=== PATIENT | female | born 1960 | race Caucasian/White ===

== ENCOUNTER 2020-06-16 00:34 | Emergency (ER) | payer OTHER ==
[~2020-06-16] VITALS: Ht 170.2 cm; Wt 76.7 kg
[~2020-06-16 00:34] MED LIST: ACET-8386 PO; CARI350T PO; NAPR-54 PO
[2020-06-16 00:39] VITALS: BP 121/59
--- NOTE | 2020-06-16 00:39 | NUR ---
to bed ambulatory
--- NOTE | 2020-06-16 00:45 | NUR ---
RECEIVED IN BED FROM TRIAGE, AMBULATORY, WITH C/O RIGHT WRIST PAIN S/P TRIP AND FALL APPROX 8 HOURS AGO,. DECREASED AND GUARDED ROM NOTED WITH SWELLING PMH: CHF, HTN NKDA
--- NOTE | 2020-06-16 00:50 | NUR ---
DR. ARCHER AT BEDSIDE FOR EXAM
[2020-06-16] MEDS ORDERED: HYDROcodone/APAP 5/325 MG 1 TAB TAB PO ONE (00:55)
--- NOTE | 2020-06-16 03:15 | NUR ---
PTS RIGHT ARM WAS PLACED IN A SUGAR TONG SPLINT. PTS ARM WAS ALSO PLACED IN A SHOULDER IMOBOLIZER. [facility].
[2020-06-16 03:20] VITALS: BP 118/64
== END 2020-06-16 03:20 | disposition home or self-care (01) ==
LOC: MED 00:34
DX: S52.531A Colles' fracture of right radius, initial encounter for closed fracture (principal); W18.39XA Other fall on same level, initial encounter; Y93.89 Activity, other specified; Y92.89 Other specified places as the place of occurrence of the external cause; Y99.8 Other external cause status
CPT/HCPCS: 73090; 73110; 99284

== ENCOUNTER 2020-07-04 23:55 | Emergency (ER) | payer OTHER ==
[~2020-07-04] VITALS: Ht 170.2 cm; Wt 76.7 kg
--- NOTE | 2020-07-05 00:03 | NUR ---
PT [facility] BLS. TAKEN TO BED 8
[2020-07-05 00:16] VITALS: BP 156/68
--- NOTE | 2020-07-05 00:23 | NUR ---
[facility] FROM HOME. PT WAS FOUND VOMITING AND C/O ABD PAIN WHEN EMS ARRIVED. HX OF CHF AND CHOLELITHIASIS. PT S/P MECHANICAL FALL X2 WEEKS, PT REPORTS HAVING FRACTURE ON HER RIGHT WRIST. SPLINT IN PLACE . NKA TO MEDS.
[2020-07-05] MEDS ORDERED: ONDANSETRON 4 MG/2 ML VIAL IVP ONE (00:35)
[2020-07-05] MEDS ORDERED: KETOROLAC 30 MG/ML VIAL IVP ONE (00:35)
[2020-07-05] MEDS ORDERED: NACL 0.9% 500 ML IV ONE (00:35)
[2020-07-05 00:55] LABS: BASOPHILS % (AUTO) 0.5 % (0.0-2.0); EOSINOPHILS % (AUTO) 0.7 % (0.0-4.0); HEMATOCRIT 41.3 % (36-48); LYMPHOCYTES # (AUTO) 0.5 K/uL (2.5-16.5); LYMPHOCYTES % (AUTO) 8.5 % (20.5-51.1); MEAN CORPUSCULAR HEMOGLOBIN 30 pg (27-31); MEAN CORPUSCULAR HGB CONC 34 g/dL (33-37); MEAN CORPUSCULAR VOLUME 87.9 fL (80-94); MONOCYTES # (AUTO) 0.5 K/uL (0.8-1.0); MONOCYTES % (AUTO) 8.1 % (1.7-9.3); NEUTROPHILS # (AUTO) 5.2 K/uL (1.8-7.7); NEUTROPHILS % (AUTO) 82.2 % (42.2-75.2); PLATELET COUNT (AUTO) 134 K/uL (140-450); RED CELL DISTRIBUTION WIDTH 12.6 % (11.6-13.7); WHITE BLOOD COUNT (AUTO) 6.4 K/uL (4.8-10.8)
--- NOTE | 2020-07-05 00:55 | NUR ---
X-Ray at bedside.
[2020-07-05 01:15] LABS: POTASSIUM 3.4 mmol/L (3.5-5.1)
[2020-07-05 01:16] LABS: ANION GAP 10.5 (8-16); CARBON DIOXIDE 29.9 mmol/L (21-32)
[2020-07-05 01:17] LABS: ALBUMIN 3.4 g/dL (3.4-5.0)
[2020-07-05 03:29] VITALS: BP 156/68
--- NOTE | 2020-07-05 03:30 | NUR ---
Patient discharged with v/s stable. Written and verbal after care instructions given and explained. Patient verbalized understanding. Ambulatory with steady gait. All questions addressed prior to discharge. Advised to follow up with PMD.
--- NOTE | 2020-07-06 19:28 | NUR ---
LATE ENTRY--- 0.9% NS BOLUS ENDED AT 0205
== END 2020-07-05 03:30 | disposition home or self-care (01) ==
LOC: MED 23:55
DX: R10.9 Unspecified abdominal pain (principal); I11.0 Hypertensive heart disease with heart failure; Z79.899 Other long term (current) drug therapy
CPT/HCPCS: 36415; 71045; 76705; 80053; 83690; 84484; 85025; 93005; 96361; 96374; 96375; 99285; J1885; J2405; J7030

== ENCOUNTER 2022-05-13 | Emergency (ER) | payer OTHER ==
[~2022-05-13] VITALS: Ht 165.1 cm; Wt 81.9 kg
[~2022-05-13] MED LIST changes: -ACET-8386 PO; +ACET-8905 PO
[2022-05-13 00:06] VITALS: BP 146/110
--- NOTE | 2022-05-13 00:15 | NUR ---
PT TO LOBBY WITH DAUGHTER
--- NOTE | 2022-05-13 00:23 | NUR ---
Urine collected and sent to lab
--- NOTE | 2022-05-13 00:27 | NUR ---
Pt taken to CT
[2022-05-13 01:01] LABS: APPEARANCE,URINE CLEAR (CLEAR); BILIRUBIN,URINE NEGATIVE (NEGATIVE); BLOOD, URINE NEGATIVE (NEGATIVE); COLOR,URINE YELLOW (YELLOW); LEUKOCYTE ESTERASE ,URINE TRACE (NEGATIVE); NITRITE, URINE NEGATIVE (NEGATIVE); UGLUCOSE NEGATIVE (NEGATIVE)
[2022-05-13 01:06] LABS: RBC,URINE 0-5 /HPF (0-5)
[2022-05-13 01:11] LABS: ALBUMIN 2.8 g/dL (3.4-5.0); ANION GAP 10.4 (8-16); ASPARTATE AMINOTRANSFERASE 16 U/L (15-37); CARBON DIOXIDE 34.8 mmol/L (21-32); CHLORIDE 104 mmol/L (98-107); CREATININE 1.1 mg/dL (0.6-1.3); GFR ARICAN-AMERICAN 64 mL/min (>90); GLUCOSE 92 mg/dL (74-106); MAGNESIUM 2.1 mg/dL (1.8-2.4); POTASSIUM 4.2 mmol/L (3.5-5.1); SODIUM SERUM 145 mmol/L (136-145); TOTAL BILIRUBIN 0.2 mg/dL (0.0-1.0); UREA NITROGEN, BLOOD 13 mg/dL (7-18)
[2022-05-13 01:22] LABS: BASOPHILS % (AUTO) 0.9 % (0.0-2.0); EOSINOPHILS # (AUTO) 0.2 K/uL (0-0.4); EOSINOPHILS % (AUTO) 4.1 % (0.0-4.0); HEMATOCRIT 42.4 % (36-48); HEMOGLOBIN 14.1 g/dL (12.0-16.0); LYMPHOCYTES # (AUTO) 1.3 K/uL (2.5-16.5); LYMPHOCYTES % (AUTO) 26.2 % (20.5-51.1); MEAN CORPUSCULAR HEMOGLOBIN 31 pg (27-31); MEAN CORPUSCULAR HGB CONC 33 g/dL (33-37); MEAN CORPUSCULAR VOLUME 91.6 fL (80-94); MONOCYTES # (AUTO) 0.6 K/uL (0.8-1.0); MONOCYTES % (AUTO) 11.1 % (1.7-9.3); NEUTROPHILS # (AUTO) 2.9 K/uL (1.8-7.7); NEUTROPHILS % (AUTO) 57.7 % (42.2-75.2); PLATELET COUNT (AUTO) 181 K/uL (140-450); RED BLOOD CELL COUNT(AUTO) 4.63 MIL/uL (4.20-5.40); RED CELL DISTRIBUTION WIDTH 13.4 % (11.6-13.7); WHITE BLOOD COUNT (AUTO) 5.1 K/uL (4.8-10.8)
[2022-05-13] MEDS ORDERED: NITR100C7 PO (02:20)
[2022-05-13 02:25] VITALS: BP 132/78
[2022-05-13] MEDS ORDERED: ASPIRIN 81 MG TAB.CHEW PO ONE (02:35)
[2022-05-13] MEDS ORDERED: NACL 0.9% 1,000 ML IV ONE (02:35)
== END 2022-05-13 02:25 | disposition home or self-care (01) ==
LOC: MED
DX: R41.82 Altered mental status, unspecified (principal); Z20.822 Contact with and (suspected) exposure to COVID-19; N39.0 Urinary tract infection, site not specified; I11.0 Hypertensive heart disease with heart failure; I50.9 Heart failure, unspecified; F17.200 Nicotine dependence, unspecified, uncomplicated; Z79.899 Other long term (current) drug therapy
CPT/HCPCS: 36415; 70450; 80053; 81001; 82140; 83735; 84484; 85025; 87086; 99284

== ENCOUNTER 2022-05-13 02:40 | Emergency (ER) | payer OTHER ==
[~2022-05-13] VITALS: Ht 165.1 cm; Wt 85.7 kg
[~2022-05-13 02:40] MED LIST changes: +NITR100C7 PO
[2022-05-13 02:50] VITALS: BP 152/82
--- NOTE | 2022-05-13 02:55 | NUR ---
PT TAKEN TO BED 5
--- NOTE | 2022-05-13 03:26 | NUR ---
PT TAKEN TO CT
[2022-05-13] MEDS ORDERED: ASPIRIN 81 MG TAB.CHEW PO ONE (03:35)
[2022-05-13] MEDS ORDERED: NACL 0.9% 1,000 ML IV ONE (03:35)
[2022-05-13] MEDS ORDERED: cefTRIAXone 1,000 MG VIAL ONE (03:45)
--- NOTE | 2022-05-13 03:51 | NUR ---
pt was discharge ad came back [facility]to [facility] by daughter due to her alter and short term memomey problem, awake and alert x4. room air and ambulatory
--- NOTE | 2022-05-13 07:30 | NUR ---
REPORT RECEIVED FROM MARINA ROBLERO. ASSUMED CARE AT THIS TIME
--- NOTE | 2022-05-13 09:16 | NUR ---
[facility] WALKED TO LAB
--- NOTE | 2022-05-13 10:26 | NUR ---
ATTEMPT TO GIVE REPORT TO JOAQUÍN LOPEZ. "NURSE NOT AVAILABLE" "SHE WILL CALL BACK".
--- NOTE | 2022-05-13 10:43 | NUR ---
[facility] AT BEDSIDE FOR TX
--- NOTE | 2022-05-13 10:46 | NUR ---
REPORT GIVEN TO SANJUANA ROBLERO AT [facility]. ALL QUESTIONS ANSWERED. MADE AWARE OF ETA.
--- NOTE | 2022-05-13 10:48 | NUR ---
CALLED ATTEMPT TO NOTIFY -DAUGHTER DAVID ABOUT PT TX, NO ANSWER.
[2022-05-13 10:55] VITALS: BP 157/82
--- NOTE | 2022-05-13 10:55 | NUR ---
Patient to be transferred to [facility]. Is being transferred due to INSURANCE. Receiving facility has accepting physician and available space. ER physician has signed transfer form. Patient or responsible libertarian has agreed to transfer and signed form. Patient belongings inventoried and will be sent with patient. Copy of nursing notes, lab reports, Physicians Orders AND CT to be sent with patient. Report called to SANJUANA ROBLERO at receiving facility. [facility] VIA [facility] . ETA TO FACILITY <30MIN.
--- NOTE | 2022-05-13 11:09 | NUR ---
The patient's care was reviewed and supervised by Delton 04 ED, RN.
== END 2022-05-13 10:55 | disposition short-term general hospital (02) ==
LOC: MED 02:40
DX: R41.82 Altered mental status, unspecified (principal); N39.0 Urinary tract infection, site not specified; I10 Essential (primary) hypertension; Z79.899 Other long term (current) drug therapy
CPT/HCPCS: 70496; 70498; 96365; 99285; J0696; Q9967; J7030

== ENCOUNTER 2023-01-21 20:45 | Emergency (ER) | payer MEDICARE, OTHER ==
[~2023-01-21] VITALS: Ht 167.6 cm; Wt 79.4 kg
[2023-01-21 20:52] VITALS: BP 124/64; PULSE 104; RESP 12; TEMP 96.7; O2SAT 95
[2023-01-21] MEDS ORDERED: NACL 0.9% 1,000 ML IV ONE (21:10)
[2023-01-21 22:08] LABS: BASOPHILS % (AUTO) 0.2 % (0.0-2.0); EOSINOPHILS % (AUTO) 0.2 % (0.0-4.0); HEMATOCRIT 42.5 % (36-48); HEMOGLOBIN 14.5 g/dL (12.0-16.0); LYMPHOCYTES # (AUTO) 0.3 K/uL (2.5-16.5); LYMPHOCYTES % (AUTO) 2.9 % (20.5-51.1); MEAN CORPUSCULAR HEMOGLOBIN 31 pg (27-31); MEAN CORPUSCULAR HGB CONC 34 g/dL (33-37); MEAN CORPUSCULAR VOLUME 89.2 fL (80-94); MONOCYTES # (AUTO) 0.4 K/uL (0.8-1.0); MONOCYTES % (AUTO) 4.9 % (1.7-9.3); NEUTROPHILS # (AUTO) 8.1 K/uL (1.8-7.7); NEUTROPHILS % (AUTO) 91.8 % (42.2-75.2); RED BLOOD CELL COUNT(AUTO) 4.76 MIL/uL (4.20-5.40); RED CELL DISTRIBUTION WIDTH 12.9 % (11.6-13.7); WHITE BLOOD COUNT (AUTO) 8.8 K/uL (4.8-10.8)
[2023-01-21 22:32] LABS: ALBUMIN 3.2 g/dL (3.4-5.0); ANION GAP 12.6 (8-16); CALCIUM 8.5 mg/dL (8.5-10.1); CREATINE KINASE, TOTAL 130 U/L (26-192); CREATININE 1.2 mg/dL (0.6-1.3); POTASSIUM 3.6 mmol/L (3.5-5.1); TOTAL BILIRUBIN 0.6 mg/dL (0.0-1.0); TOTAL PROTEIN, SERUM 7.1 g/dL (6.4-8.2)
[2023-01-21 22:43] LABS: PLATELET COUNT (AUTO) 73 K/uL (140-450)
[2023-01-21 22:49] LABS: LACTIC ACID 2.4 mmol/L (0.4-2.0)
[2023-01-22 00:30] LABS: APPEARANCE,URINE CLEAR (CLEAR); BILIRUBIN,URINE NEGATIVE (NEGATIVE); BLOOD, URINE NEGATIVE (NEGATIVE); COLOR,URINE YELLOW (YELLOW); LEUKOCYTE ESTERASE ,URINE 2+ (NEGATIVE); NITRITE, URINE NEGATIVE (NEGATIVE); PROTEIN,URINE NEGATIVE (NEGATIVE); UGLUCOSE NEGATIVE (NEGATIVE)
[2023-01-22 00:37] LABS: BACTERIA,URINE 10-30 (MOD) /HPF (None Seen); RBC,URINE 0-5 /HPF (0-5); WBC,URINE 16-25 (MOD) /HPF (0-5)
[2023-01-22 00:38] LABS: MUCUS,URINE 1+ /LPF (None Seen); SQUAMOUS EPITHELIAL CELL,UR 4-10 (MOD) /LPF (0-3 (FEW))
[2023-01-22] MEDS ORDERED: cefTRIAXone 1,000 MG VIAL ONE (01:19)
[2023-01-22] MEDS ORDERED: ESCI5TAB PO (01:37)
[2023-01-22] MEDS ORDERED: VALS40TA3 PO (01:37)
[2023-01-22] MEDS ORDERED: THIA50TA39 PO (01:37)
[2023-01-22] MEDS ORDERED: ATOR10TA51 PO (01:37)
[2023-01-22] MEDS ORDERED: NALT50TA5 PO (01:37)
[2023-01-22] MEDS ORDERED: CYAN25006 PO (01:37)
[2023-01-22] MEDS ORDERED: CEPH-588 PO (04:20)
[2023-01-22 04:32] VITALS: BP 118/65; PULSE 85; RESP 12; TEMP 96.7; O2SAT 97
== END 2023-01-22 04:32 | disposition left against medical advice (07) ==
LOC: MED 20:45
DX: R55 Syncope and collapse (principal); Z20.822 Contact with and (suspected) exposure to COVID-19; N39.0 Urinary tract infection, site not specified; I95.9 Hypotension, unspecified; R74.02 Elevation of levels of lactic acid dehydrogenase [LDH]; R76.8 Other specified abnormal immunological findings in serum; Z79.899 Other long term (current) drug therapy
CPT/HCPCS: 36415; 71045; 80053; 81001; 82550; 83605; 83880; 84484; 85025; 85379; 87040; 87086; 87426; 96365; 99285; J0696

== ENCOUNTER 2023-01-25 12:15 | Emergency (ER) | payer MEDICARE, OTHER ==
[~2023-01-25] VITALS: Ht 170.2 cm; Wt 79.4 kg
[~2023-01-25 12:15] MED LIST changes: -ACET-8905 PO; +ATOR10TA51 PO; -CARI350T PO; +CEPH-588 PO; +CYAN25006 PO; +ESCI5TAB PO; +NALT50TA5 PO; -NAPR-54 PO; -NITR100C7 PO; +THIA50TA39 PO; +VALS40TA3 PO
[2023-01-25 12:33] VITALS: BP 106/61; PULSE 82; RESP 18; TEMP 98.5; O2SAT 96
[2023-01-25] MEDS ORDERED: NIRM1TAB5 PO (13:16)
== END 2023-01-25 13:43 | disposition left against medical advice (07) ==
LOC: MED 12:15
DX: U07.1 COVID-19 (principal); R05.9 Cough, unspecified; M79.10 Myalgia, unspecified site; I50.9 Heart failure, unspecified; I11.0 Hypertensive heart disease with heart failure; E78.5 Hyperlipidemia, unspecified; Z79.899 Other long term (current) drug therapy
CPT/HCPCS: 99281